=== PATIENT | male | born 1990 | race African-American/Black ===

== ENCOUNTER 2021-05-05 19:35 | Emergency (ER) | payer SELFPAY ==
[~2021-05-05] VITALS: Ht 177.8 cm; Wt 63.5 kg
[2021-05-05] MEDS ORDERED: OXYCODONE/APAP 5-325 MG TABLET PO ONE (22:45)
[2021-05-05] MEDS ORDERED: OXYCODONE/APAP 5-325 MG TABLET ONE (22:59)
[2021-05-05 23:00] LABS: HEMATOCRIT 37.9 % (36.7-47.1); MEAN CORPUSCULAR HEMOGLOBIN 27.8 uug (23.8-33.4); MEAN CORPUSCULAR VOLUME 84.7 fL (73.0-96.2); PLATELET COUNT (AUTO) 177 K/uL (152-348)
[2021-05-05 23:04] LABS: CREATININE 0.9 mg/dL (0.6-1.3); POTASSIUM 4.1 mmol/L (3.5-5.1)
[2021-05-05 23:09] LABS: BILIRUBIN,DIRECT 0.1 mg/dL (0.0-0.2); BILIRUBIN,TOTAL 0.6 mg/dL (0.2-1.0); TOTAL PROTEIN, SERUM 8.9 g/dL (6.4-8.2)
[2021-05-06] MEDS ORDERED: OXYC-128 PO (00:44)
[2021-05-06 01:00] VITALS: BP 109/89
--- NOTE | 2021-05-06 01:00 | NUR ---
Patient discharged to home in stable condition. Written and verbal after care instructions given. Patient verbalizes understanding of instructions. Stressed follow up or return to ER for worsening s/s. Walks with steady gait. All belongings taken.
== END 2021-05-06 01:01 | disposition home or self-care (01) ==
LOC: ER 19:35
DX: B34.9 Viral infection, unspecified (principal); Z20.822 Contact with and (suspected) exposure to COVID-19; D64.9 Anemia, unspecified; D72.821 Monocytosis (symptomatic); J45.909 Unspecified asthma, uncomplicated
CPT/HCPCS: 36415; 71045; 85025; 87040; 87400; A4663